=== PATIENT | female | born 1985 | race Caucasian/White ===

== ENCOUNTER 2017-04-18 18:25 | Emergency (ER) | payer SELFPAY ==
[~2017-04-18 18:25] MED LIST: ALBUTEROL17 GM INH; CATAFLAM50 MG PO; CLEOCIN PO; DOXYCYCLINE PO; FLEXERIL PO; FLOVENT HFA12 GM INH; IBUPROFEN PO; PREDNISONE PO
== END 2017-04-18 20:24 | disposition home or self-care (01) ==
LOC: SED 18:25
DX: J20.9 Acute bronchitis, unspecified (principal); S30.861A Insect bite (nonvenomous) of abdominal wall, initial encounter; F17.210 Nicotine dependence, cigarettes, uncomplicated; W57.XXXA Bitten or stung by nonvenomous insect and other nonvenomous arthropods, initial encounter
CPT/HCPCS: 94640; 99283